=== PATIENT | female | born 1965 | race Hispanic/Latino ===

== ENCOUNTER 2022-08-11 17:20 | Emergency (ER) | payer SELFPAY ==
[~2022-08-11] VITALS: Ht 160 cm; Wt 118.0 kg
[2022-08-12 00:39] LABS: HEMOGLOBIN 12.7 g/dl (12.0-16.0); MEAN CELL VOLUME 91.5 fL CALC (80.0-100.0); MEAN CORPUSCULAR HGB 29.8 pG CALC (26.0-32.0); MEAN CORPUSCULAR HGB CONC 32.6 g/dL CAL (32.0-36.0); NEUT# 2.41 thou/uL (2.00-7.15); RED BLOOD COUNT 4.26 mill/uL (4.20-5.60); RED CELL DISTRI WIDTH 13.7 % (11.5-15.5)
[2022-08-12 00:52] LABS: ALBUMIN 4.5 g/dL (3.2-5.0); ALKALINE PHOSPHATASE 102 u/l (38-126); ANION GAP 17 (6-22 (CALC)); BILIRUBIN, TOTAL 0.7 mg/dL (0.0-1.4); BUN 15 mg/dL (7-17); BUN/CREATININE RATIO 29 (12-20 (CALC)); CARBON DIOXIDE 22 mmol/l (22-30); CHLORIDE 107 mmol/l (95-108); CREATININE 0.5 mg/dL (0.5-1.0); GFR FOR AFR.AMER. > 60 ML/MIN (>=60 (CALC)); GFR OTHER RACES > 60 ML/MIN (>=60 (CALC)); POTASSIUM 3.9 mmol/l (3.5-5.1); SGOT/AST 51 u/l (14-36); SODIUM 142 mmol/l (137-146); TOTAL PROTEIN 7.9 g/dL (6.3-8.2)
[2022-08-12] MEDS ORDERED: CYCLOBENZAPRINE10 MG PO (01:25)
[2022-08-12] MEDS ORDERED: ULTRAM50 MG PO (01:25)
[2022-08-12 01:39] VITALS: BP 132/79
== END 2022-08-12 01:47 | disposition home or self-care (01) | DRG 552 ==
LOC: ED 17:20
PROVIDERS: Emergency Medicine
DX: M54.9 Dorsalgia, unspecified (principal); S13.9XXA Sprain of joints and ligaments of unspecified parts of neck, initial encounter

== ENCOUNTER 2023-03-03 16:01 | Emergency (ER) | payer SELFPAY ==
[~2023-03-03] VITALS: Ht 160 cm; Wt 125.8 kg
[~2023-03-03 16:01] MED LIST: CYCLOBENZAPRINE10 MG PO; ULTRAM50 MG PO
[2023-03-03 16:53] LABS: BASO% 0.5 % (0-3); EOS% 4.4 % (0-8); HEMATOCRIT 36.4 % (37.0-47.0); HEMOGLOBIN 11.8 g/dl (12.0-16.0); IMMATURE GRANULOCYTES 0.4 % (0.0-5.0); LYMPH% 39.6 % (15-41); MEAN CELL VOLUME 92.6 fL CALC (80.0-100.0); MEAN CORPUSCULAR HGB CONC 32.4 g/dL CAL (32.0-36.0); MONO% 6.7 % (2-13); NEUT# 2.66 thou/uL (2.00-7.15); NEUT% 48.4 % (42-76); RED BLOOD COUNT 3.93 mill/uL (4.20-5.60); RED CELL DISTRI WIDTH 13.7 % (11.5-15.5)
[2023-03-03 17:04] LABS: ALBUMIN 4.5 g/dL (3.2-5.0); ALKALINE PHOSPHATASE 92 u/l (38-126); ANION GAP 14 (6-22 (CALC)); BILIRUBIN, TOTAL 0.7 mg/dL (0.02-1.3); BUN 11 mg/dL (7-17); BUN/CREATININE RATIO 20 (12-20 (CALC)); CARBON DIOXIDE 28 mmol/l (22-30); CHLORIDE 102 mmol/l (95-108); CREATININE 0.6 mg/dL (0.5-1.0); GFR FOR AFR.AMER. > 60 ML/MIN (>=60 (CALC)); GFR OTHER RACES > 60 ML/MIN (>=60 (CALC)); POTASSIUM 3.7 mmol/l (3.5-5.1); SGOT/AST 71 u/l (14-36); SODIUM 140 mmol/l (137-146); TOTAL PROTEIN 7.8 g/dL (6.3-8.2)
[2023-03-03 17:28] LABS: URINE BILIRUBIN - DIPSTICK NEGATIVE (NEGATIVE); URINE BLOOD DIPSTICK TRACE-INTACT (NEGATIVE); URINE COLOR YELLOW; URINE GLUCOSE - DIPSTICK NEGATIVE (NEGATIVE); URINE KETONE NEGATIVE (NEGATIVE); URINE LEUK ESTERASE NEGATIVE (NEGATIVE); URINE PROTEIN - DIPSTICK NEGATIVE (NEG-TRACE); URINE UROBILINOGEN - DIPSTICK 0.2 E.U./dL (0.2)
[2023-03-03 17:31] LABS: URINE NITRITE - DIPSTICK POSITIVE (Negative)
[2023-03-03 17:38] LABS: URINE RBC 0-2 RBC/hpf (0-5); URINE SQUAMOUS EPITHELIAL CELL FEW EPI/hpf (0-FEW)
[2023-03-03] MEDS ORDERED: CEPHALEXIN500 MG PO ×2 (18:03→19:25)
[2023-03-03] MEDS ORDERED: VOLTAREN - GENE75 MG PO ×2 (19:18→19:23)
[2023-03-03 19:31] VITALS: BP 156/91
== END 2023-03-03 19:36 | disposition home or self-care (01) | DRG 556 ==
LOC: ED 16:01
PROVIDERS: Family Medicine
DX: M79.662 Pain in left lower leg (principal); N39.0 Urinary tract infection, site not specified; R60.0 Localized edema; I10 Essential (primary) hypertension; E78.5 Hyperlipidemia, unspecified

== ENCOUNTER 2023-07-24 18:33 | Observation (INO) | payer SELFPAY ==
[~2023-07-24] VITALS: Ht 160 cm; Wt 125.0 kg
[2023-07-24] VITALS (8 sets, daily range): BP systolic 100–160; BP diastolic 68–118
[~2023-07-24 18:33] MED LIST changes: +CEPHALEXIN500 MG PO; +VOLTAREN - GENE75 MG PO
[2023-07-24 19:22] LABS: BASO% 0.5 % (0-3); EOS% 5.9 % (0-8); HEMATOCRIT 37.8 % (37.0-47.0); HEMOGLOBIN 12.3 g/dl (12.0-16.0); IMMATURE GRANULOCYTES 0.2 % (0.0-5.0); LYMPH% 40.8 % (15-41); MEAN CORPUSCULAR HGB 30.6 pG CALC (26.0-32.0); MEAN CORPUSCULAR HGB CONC 32.5 g/dL CAL (32.0-36.0); MONO% 5.1 % (2-13); NEUT# 2.92 thou/uL (2.00-7.15); NEUT% 47.5 % (42-76); RED BLOOD COUNT 4.02 mill/uL (4.20-5.60); RED CELL DISTRI WIDTH 13.5 % (11.5-15.5)
[2023-07-24 19:35] LABS: ALBUMIN 4.2 g/dL (3.2-5.0); ALKALINE PHOSPHATASE 100 u/l (38-126); ANION GAP 15 (6-22 (CALC)); BILIRUBIN, TOTAL 0.4 mg/dL (0.02-1.3); BUN 8 mg/dL (7-17); BUN/CREATININE RATIO 13 (12-20 (CALC)); CARBON DIOXIDE 27 mmol/l (22-30); CHLORIDE 102 mmol/l (95-108); CREATININE 0.6 mg/dL (0.5-1.0); GFR FOR AFR.AMER. > 60 ML/MIN (>=60 (CALC)); GFR OTHER RACES > 60 ML/MIN (>=60 (CALC)); POTASSIUM 3.4 mmol/l (3.5-5.1); SGOT/AST 66 u/l (14-36); SODIUM 141 mmol/l (137-146); TOTAL PROTEIN 7.8 g/dL (6.3-8.2)
[2023-07-25 06:43] LABS: CHOLESTEROL HDL RATIO 3.4 (<4.4 (CALC))
[2023-07-25 08:58] LABS: ANION GAP 12 (6-22 (CALC)); BUN 9 mg/dL (7-17); BUN/CREATININE RATIO 16 (12-20 (CALC)); CARBON DIOXIDE 25 mmol/l (22-30); CHLORIDE 105 mmol/l (95-108); CREATININE 0.6 mg/dL (0.5-1.0); GFR FOR AFR.AMER. > 60 ML/MIN (>=60 (CALC)); GFR OTHER RACES > 60 ML/MIN (>=60 (CALC)); POTASSIUM 3.5 mmol/l (3.5-5.1); SODIUM 138 mmol/l (137-146)
[2023-07-25] MEDS ORDERED: ROBITUSSIN200 MG/10 PO (12:35)
[2023-07-25] MEDS ORDERED: ASPIRIN LOW81 M1 PO (12:39)
[2023-07-25] MEDS ORDERED: MUCINEX600 MG PO (12:39)
== END 2023-07-25 14:00 | disposition home or self-care (01) | DRG 313 ==
LOC: ED 18:33 → ED-I 19:11 → ED 19:11 → ED-I 20:15 → ED 20:35 → ICU 20:36
PROVIDERS: Nurse Practitioner; Student in an Organized Health Care Education/Training Program; ADMIT Internal Medicine; ATTEND Internal Medicine
DX: R07.9 Chest pain, unspecified (principal); R09.81 Nasal congestion; R05.9 Cough, unspecified; I10 Essential (primary) hypertension; E78.5 Hyperlipidemia, unspecified; Z20.822 Contact with and (suspected) exposure to COVID-19

== ENCOUNTER 2024-10-23 14:12 | Emergency (ER) | payer SELFPAY ==
[~2024-10-23] VITALS: Ht 160 cm; Wt 104.0 kg
[~2024-10-23 14:12] MED LIST changes: +ASPIRIN LOW81 M1 PO; +MUCINEX600 MG PO; +ROBITUSSIN200 MG/10 PO
[2024-10-23 14:44] VITALS: BP 131/110
[2024-10-23] MEDS ORDERED: ISOVUE-300 (Iopamidol) 100 ML SDV IV ONE ×2 (14:55)
[2024-10-23 15:27] LABS: BASO% 0.7 % (0-3); HEMATOCRIT 37.7 % (37.0-47.0); HEMOGLOBIN 12.4 g/dl (12.0-16.0); IMMATURE GRANULOCYTES 0.2 % (0.0-5.0); LYMPH% 41.3 % (15-41); MEAN CELL VOLUME 92.9 fL CALC (80.0-100.0); MEAN CORPUSCULAR HGB 30.5 pG CALC (26.0-32.0); MEAN CORPUSCULAR HGB CONC 32.9 g/dL CAL (32.0-36.0); MONO% 7.2 % (2-13); NEUT# 2.86 thou/uL (2.00-7.15); NEUT% 47.6 % (42-76); RED BLOOD COUNT 4.06 mill/uL (4.20-5.60); RED CELL DISTRI WIDTH 13.3 % (11.5-15.5)
[2024-10-23 15:39] LABS: ALBUMIN 4.4 g/dL (3.2-5.0); ALKALINE PHOSPHATASE 108 u/l (38-126); AMYLASE 66 u/l (30-110); ANION GAP 11 (6-22 (CALC)); BUN 8 mg/dL (7-17); BUN/CREATININE RATIO 16 (12-20 (CALC)); CARBON DIOXIDE 30 mmol/l (22-30); CHLORIDE 102 mmol/l (95-108); CREATININE 0.5 mg/dL (0.5-1.0); ESTIMATED GFR 109 ML/MIN (>=90 (CALC)); LIPASE 134 u/l (23-300); POTASSIUM 3.3 mmol/l (3.5-5.1); SGOT/AST 58 u/l (14-36); SODIUM 139 mmol/l (137-146)
[2024-10-23 15:53] LABS: BILIRUBIN, TOTAL 0.7 mg/dL (0.02-1.3)
[2024-10-23 16:59] LABS: URINE BILIRUBIN - DIPSTICK Negative (NEGATIVE); URINE BLOOD DIPSTICK Negative (NEGATIVE); URINE COLOR Light yellow; URINE GLUCOSE - DIPSTICK Negative (NEGATIVE); URINE KETONE Negative (NEGATIVE); URINE LEUK ESTERASE Negative (NEGATIVE); URINE NITRITE - DIPSTICK Negative (Negative); URINE PH 6.5 (4.5-8.0); URINE PROTEIN - DIPSTICK Negative (NEG-TRACE); URINE SPECIFIC GRAVITY <=1.005; URINE UROBILINOGEN - DIPSTICK 0.2 E.U./dL (0.2)
[2024-10-23] MEDS ORDERED: SODIUM CHLORIDE 0.9% 1,000 ML IV STA (18:38)
[2024-10-23] MEDS ORDERED: MORPHINE SULFATE 4 MG/ML VIAL IV STA (18:38)
[2024-10-23] MEDS ORDERED: ONDANSETRON HCl 4 MG/2 ML SDV IV STA (18:38)
[2024-10-23] MEDS ORDERED: CIPROFLOXACN500 MG PO (19:45)
[2024-10-23] MEDS ORDERED: METRONIDAZOLE500 MG PO (19:45)
[2024-10-23] MEDS ORDERED: ZOFRAN4 MG/TAB PO (19:45)
[2024-10-23] MEDS ORDERED: TRAMADOL HYDROC50 M1 PO (19:45)
[2024-10-23 21:27] VITALS: BP 131/110
[2024-10-24] MEDS ORDERED: TRAMADOL HYDROC50 M1 PO (13:52)
== END 2024-10-23 21:27 | disposition home or self-care (01) | DRG 392 ==
LOC: ED 14:12
PROVIDERS: Nurse Practitioner
DX: K52.9 Noninfective gastroenteritis and colitis, unspecified (principal); I10 Essential (primary) hypertension; E78.5 Hyperlipidemia, unspecified
CPT/HCPCS: J1836; J2405; Q9967